=== PATIENT | female | born 1935 | race Caucasian/White ===

== ENCOUNTER → 2019-03-22 10:42 | Outpatient (CLI) | payer MEDICARE, BC ==
--- NOTE | 2019-03-23 09:29 | EC ---
PATIENT:LINDEN LEE DATE OF SERVICE: 03/22/19 SEX: F MEDICAL RECORD: [id number] DATE OF : 35 LOCATION:D[facility] AGE OF PATIENT: 83 ADMISSION DATE: 03/22/19 REFERRING PHYSICIAN: INTERPRETING PHYSICIAN: DANNY PANDYA MD ECHOCARDIOGRAM REPORT ECHO CHARGES 4 ECHO COMPLETE Date: 03/22/19 CLINICAL DIAGNOSIS: MURMUR ECHOCARDIOGRAPHIC MEASUREMENTS (adult normal given) AC root (d.<3.7cm) 3.0 cm LV Septum d (<1.2 cm> 1.2 cm Valve Excursion 1.4 cm LV Septum (systole) 1.5 cm Left Atria (s.<4.0cm> 4.0 cm LVPW d(<1.2cm) 1.4 cm RV (d.<2.3cm) 3.3 cm LVPW (sytole) 1.5 cm LV diastole(<5.6CM) 4.7 cm MV E-F(>70mm/sec) cm LV systole 3.6 cm LVOT Diameter 1.6 cm MV exc.(>10mm) 1.4 cm Est.ejection fraction (50-75%) % DOPPLER: LVIT cm/sec A 79.0 cm/sec E 56.0 cm/sec LA cm/sec RVSP 42 mmHg LVOT 87 cm/sec AOP1/2T m/s Asc. Ao 147 cm/sec RVOT 71 cm/sec RA cm/sec PA 113 cm/sec AV Gradient Peak 8.63 mmHg AV Mean 5.56 mmHg AV Area 1.5 cm MV Gradient Peak 3.50 mmHg MV Mean 1.29 mmHg MV Area cm COMMENTS: Receiving Room Clerk: Danya BROWNLEE Technical Delivery Manager: 3 Dr. More TAPE# PACS Pericardial Effusion N DATE OF SERVICE: 03/22/2019 Adequate 2-D echo, color-flow and spectral Doppler, and M-mode. Borderline LVH. LV internal dimensions are normal. Wall motion is normal. EF is greater than or equal to 55%. Aortic valve is tricuspid. No evidence of stenosis by Doppler interrogation. Left atrium is upper limits of normal at 4.0 cm. Mitral valve is thickened. Mild MR. Right-sided chambers are grossly normal. Moderate TR by color-flow imaging. ECHOCARDIOGRAM REPORT [id number] LINDEN LEE TRANSINT:[id number] Voice Confirmation ID: [id number] DOCUMENT ID: [id number] DANNY PANDYA MD at 0929 CC: [id number] DICTATION DATE: 03/22/19 1504 UNIX ANALYST: 03/22/19 1543 DEP CLI 03/22/19 [facility] [address] [id number]
== END | disposition home or self-care (01) ==
LOC: D.HCCARDIO 10:42
PROVIDERS: ATTEND Internal Medicine Interventional Cardiology
DX: R01.1 Cardiac murmur, unspecified (principal)